=== PATIENT | male | born 1990 | race Caucasian/White ===

== ENCOUNTER 2020-05-30 11:26 | Inpatient (IN) | payer MEDICAID ==
[2020-05-30] VITALS (7 sets, daily range): BP systolic 102–134; BP diastolic 60–92
[~2020-05-30] VITALS: Ht 182.9 cm; Wt 73.0 kg
[2020-05-30] MEDS ORDERED: QUEtiapine FUMARATE 100 MG TABLET PO PRN (14:30)
[2020-05-30] MEDS ORDERED: PROMETHAZINE HCL 25 MG TABLET PO PRN (14:30)
[2020-05-30] MEDS ORDERED: ACETAMINOPHEN 325 MG TABLET PO PRN (14:30)
[2020-05-30] MEDS ORDERED: MAGNESIUM HYDROXIDE SUSPENSION 30 ML UDCUP PO PRN (14:30)
[2020-05-30] MEDS ORDERED: GuaiFENesin/D-METHORPHAN [SUGAR-FREE] 200-20MG/10 ML SYRUP UDCUP PO PRN (14:30)
[2020-05-30] MEDS ORDERED: MAG HYDROX/AL HYDROX/SIMETH ES 30 ML SUSPENSION UDCUP PO PRN (14:30)
[2020-05-30] MEDS ORDERED: ZOLPIDEM TARTRATE 10 MG TABLET PO PRN (14:30)
[2020-05-30] MEDS ORDERED: TUBERCULIN, PURIFIED PROTEIN DERIVATIVE 5 TU/0.1 ML SYRINGE ID ONE (14:30)
[2020-05-30] MEDS ORDERED: HydrOXYzine PAMOATE 50 MG CAPSULE PO PRN ×2 (14:30→16:15)
[2020-05-30] MEDS ORDERED: CYANOCOBALAMIN 1,000 MCG/ML VIAL IM ONE (16:15)
[2020-05-30] MEDS ORDERED: LOPERAMIDE HCL 2 MG CAPSULE PO PRN (16:15)
[2020-05-30] MEDS ORDERED: LORazepam 2 MG TABLET PO PRN (16:15)
[2020-05-30] MEDS: THIAMINE 100 MG TABLET PO SCH (16:51)
[2020-05-30] MEDS: LORazepam 2 MG TABLET PO PRN (16:52)
[2020-05-30] MEDS: GABAPENTIN 100 MG CAPSULE PO SCH ×2 (16:52→20:31)
[2020-05-31] VITALS (7 sets, daily range): BP systolic 114–127; BP diastolic 59–89
[2020-05-31] MEDS ORDERED: LORazepam 2 MG TABLET PO PRN (07:00)
[2020-05-31] MEDS: OMEGA-3/DHA/EPA/FISH OIL 1,000 MG CAPSULE PO SCH (08:29)
[2020-05-31] MEDS: NICOTINE 21 MG/24 HOUR PATCH TD SCH (08:29)
[2020-05-31] MEDS: NALTREXONE HCL 50 MG TABLET PO SCH (08:29)
[2020-05-31] MEDS: FOLIC ACID 1 MG TABLET PO SCH (08:29)
[2020-05-31] MEDS: DULoxetine HCL 20 MG CAPSULE PO SCH (08:29)
[2020-05-31] MEDS: THIAMINE 100 MG TABLET PO SCH ×2 (08:29→16:34)
[2020-05-31] MEDS: GABAPENTIN 100 MG CAPSULE PO SCH ×4 (08:29→20:55)
[2020-05-31] MEDS: LORazepam 2 MG TABLET PO SCH ×4 (08:29→20:55)
[2020-05-31] MEDS: MULTIVITAMINS WITH MINERALS, THERAPEUTIC TABLET PO SCH (08:29)
[2020-06-01 06:29] VITALS: BP_SYST 112; BP_SYST 142; BP_DIAS 72; BP_DIAS 87
[2020-06-01] MEDS: THIAMINE 100 MG TABLET PO SCH ×2 (08:39→17:27)
[2020-06-01] MEDS: FOLIC ACID 1 MG TABLET PO SCH (08:39)
[2020-06-01] MEDS: GABAPENTIN 100 MG CAPSULE PO SCH ×2 (08:39→13:15)
[2020-06-01] MEDS: LORazepam 2 MG TABLET PO SCH ×4 (08:39→21:59)
[2020-06-01] MEDS: DULoxetine HCL 20 MG CAPSULE PO SCH (08:39)
[2020-06-01] MEDS: OMEGA-3/DHA/EPA/FISH OIL 1,000 MG CAPSULE PO SCH (08:39)
[2020-06-01] MEDS: MULTIVITAMINS WITH MINERALS, THERAPEUTIC TABLET PO SCH (08:39)
[2020-06-01] MEDS: NALTREXONE HCL 50 MG TABLET PO SCH (08:39)
[2020-06-01] MEDS: NICOTINE 21 MG/24 HOUR PATCH TD SCH (08:40)
[2020-06-01 10:06] VITALS: BP 109/72
[2020-06-01 16:12] VITALS: BP 109/64
[2020-06-01] MEDS ORDERED: OLANZapine 5 MG RAPDIS TABLET PO PRN (16:30)
[2020-06-01] MEDS: GABAPENTIN 300 MG CAPSULE PO SCH ×2 (17:27→21:59)
[2020-06-01 19:40] VITALS: BP 109/64
[2020-06-01] MEDS: OLANZapine 5 MG RAPDIS TABLET PO SCH (21:59)
[2020-06-02 05:04] VITALS: BP 115/70
[2020-06-02] MEDS ORDERED: LORazepam 1 MG TABLET PO PRN (07:00)
[2020-06-02 08:06] VITALS: BP 136/80
[2020-06-02] MEDS: THIAMINE 100 MG TABLET PO SCH ×2 (08:07→16:51)
[2020-06-02] MEDS: NICOTINE 21 MG/24 HOUR PATCH TD SCH (08:07)
[2020-06-02] MEDS: LORazepam 1 MG TABLET PO SCH ×4 (08:07→20:45)
[2020-06-02] MEDS: FOLIC ACID 1 MG TABLET PO SCH (08:07)
[2020-06-02] MEDS: DULoxetine HCL 30 MG CAPSULE PO SCH (08:07)
[2020-06-02] MEDS: OMEGA-3/DHA/EPA/FISH OIL 1,000 MG CAPSULE PO SCH (08:07)
[2020-06-02] MEDS: NALTREXONE HCL 50 MG TABLET PO SCH (08:07)
[2020-06-02] MEDS: GABAPENTIN 300 MG CAPSULE PO SCH ×4 (08:07→20:44)
[2020-06-02] MEDS: MULTIVITAMINS WITH MINERALS, THERAPEUTIC TABLET PO SCH (08:07)
[2020-06-02] MEDS ORDERED: LOPERAMIDE HCL 2 MG CAPSULE PO PRN (14:30)
[2020-06-02 16:21] VITALS: BP 124/74
[2020-06-02] MEDS: OLANZapine 5 MG RAPDIS TABLET PO SCH (20:44)
[2020-06-03 04:08] VITALS: BP 128/72
[2020-06-03] MEDS ORDERED: LORazepam 1 MG TABLET PO PRN (07:00)
[2020-06-03 08:06] VITALS: BP 120/77
[2020-06-03] MEDS: DULoxetine HCL 30 MG CAPSULE PO SCH (08:08)
[2020-06-03] MEDS: OMEGA-3/DHA/EPA/FISH OIL 1,000 MG CAPSULE PO SCH (08:08)
[2020-06-03] MEDS: GABAPENTIN 300 MG CAPSULE PO SCH ×4 (08:08→20:47)
[2020-06-03] MEDS: NALTREXONE HCL 50 MG TABLET PO SCH (08:09)
[2020-06-03] MEDS: FOLIC ACID 1 MG TABLET PO SCH (08:09)
[2020-06-03] MEDS: MULTIVITAMINS WITH MINERALS, THERAPEUTIC TABLET PO SCH (08:09)
[2020-06-03] MEDS: LORazepam 2 MG TABLET PO PRN (08:09)
[2020-06-03] MEDS: NICOTINE 21 MG/24 HOUR PATCH TD SCH (08:09)
[2020-06-03] MEDS: THIAMINE 100 MG TABLET PO SCH ×2 (08:09→16:47)
[2020-06-03 16:17] VITALS: BP 107/63
[2020-06-03] MEDS: OLANZapine 5 MG RAPDIS TABLET PO SCH (20:47)
[2020-06-04 03:27] VITALS: BP 118/69
[2020-06-04 08:06] VITALS: BP 131/72
[2020-06-04] MEDS: MULTIVITAMINS WITH MINERALS, THERAPEUTIC TABLET PO SCH (09:10)
[2020-06-04] MEDS: GABAPENTIN 300 MG CAPSULE PO SCH ×3 (09:10→16:26)
[2020-06-04] MEDS: NALTREXONE HCL 50 MG TABLET PO SCH (09:10)
[2020-06-04] MEDS: DULoxetine HCL 30 MG CAPSULE PO SCH (09:10)
[2020-06-04] MEDS: OMEGA-3/DHA/EPA/FISH OIL 1,000 MG CAPSULE PO SCH (09:10)
[2020-06-04] MEDS: FOLIC ACID 1 MG TABLET PO SCH (09:10)
[2020-06-04] MEDS: THIAMINE 100 MG TABLET PO SCH ×2 (09:10→16:26)
[2020-06-04] MEDS: NICOTINE 21 MG/24 HOUR PATCH TD SCH (09:11)
[2020-06-04] MEDS ORDERED: GABA-1181 PO ×2 (15:01→16:31)
[2020-06-04] MEDS ORDERED: OMEG-135 PO (15:01)
[2020-06-04] MEDS ORDERED: DULO30CA96 PO (15:01)
[2020-06-04] MEDS ORDERED: NALT50TA PO (15:01)
[2020-06-04] MEDS ORDERED: OLAN5TAB30 PO ×2 (15:01→16:31)
[2020-06-04 16:13] VITALS: BP 112/59
[2020-06-04] MEDS: LORazepam 2 MG TABLET PO PRN (16:26)
[2020-06-04] MEDS ORDERED: DULO20CA27 PO (16:31)
[2020-06-04] MEDS: GABAPENTIN 400 MG CAPSULE PO SCH (20:31)
[2020-06-04] MEDS ORDERED: OLANZapine 10 MG RAPDIS TABLET PO SCH (21:00)
[2020-06-05 04:01] VITALS: BP 114/65
[2020-06-05 08:35] VITALS: BP 140/80
[2020-06-05] MEDS ORDERED: DULoxetine HCL 20 MG CAPSULE PO SCH (09:00)
[2020-06-05] MEDS: OMEGA-3/DHA/EPA/FISH OIL 1,000 MG CAPSULE PO SCH (10:06)
[2020-06-05] MEDS: NICOTINE 21 MG/24 HOUR PATCH TD SCH (10:06)
[2020-06-05] MEDS: THIAMINE 100 MG TABLET PO SCH (10:06)
[2020-06-05] MEDS: NALTREXONE HCL 50 MG TABLET PO SCH (10:06)
[2020-06-05] MEDS: FOLIC ACID 1 MG TABLET PO SCH (10:06)
[2020-06-05] MEDS: GABAPENTIN 400 MG CAPSULE PO SCH (10:06)
[2020-06-05] MEDS: MULTIVITAMINS WITH MINERALS, THERAPEUTIC TABLET PO SCH (10:06)
== END 2020-06-05 10:30 | disposition home or self-care (01) | DRG 750 ==
LOC: B3A 16:09
PROVIDERS: ADMIT Psychiatry & Neurology Psychiatry; ATTEND Psychiatry & Neurology Psychiatry
DX: F25.9 Schizoaffective disorder, unspecified (principal); F12.20 Cannabis dependence, uncomplicated; F14.20 Cocaine dependence, uncomplicated; R45.851 Suicidal ideations; F17.200 Nicotine dependence, unspecified, uncomplicated; Z55.9 Problems related to education and literacy, unspecified; F33.2 Major depressive disorder, recurrent severe without psychotic features; Z59.0 Homelessness; Z65.3 Problems related to other legal circumstances; Z79.899 Other long term (current) drug therapy
CPT/HCPCS: J3420